=== PATIENT | female | born 1965 | race Caucasian/White ===

== ENCOUNTER → 2019-06-06 | Outpatient (CLI) | payer BC ==
--- NOTE | 2019-06-06 09:09 | MR ---
EXAMINATION TYPE: MR cspine/tspine/lspine wo con DATE OF EXAM: 06/06/2019 COMPARISON: MRI cervical and lumbar spine August 31, 2015. HISTORY: low back pain/neck pain/thoracic pain per order. Headache with neck and back pain for 4 year s causing pain or weakness in both hands and right buttock/thigh per patient. TECHNIQUE: Multiplanar, multisequence imaging of the cervical, thoracic, and lumbar spine are all per formed without IV contrast. FINDINGS: C-SPINE: FINDINGS: Sagittal images of the cervical spine show the craniocervical junction to remain within nor mal limits. The cervical and upper thoracic spinal cord is normal in caliber and signal. Vertebral alignment is stable and straightened. There is persisting grade 1 retrolisthesis C6 on C7 The verteb ral body heights remain normal. . There is moderate multilevel disc space narrowing and spurring wit h heterogeneous Modic type II endplate changes C6-C7 level for reference. Axial images at C2-C3 level redemonstrate tiny central disc protrusion mildly effacing anterior theca l sac, bilateral neural foramina are patent. Axial images at C3-C4 level redemonstrated bilobed disc herniation with uncovertebral facet arthropat hy effacing anterolateral thecal sac greater on the right and causing severe right and mild to modera te left-sided neural foraminal narrowing. No significant change from prior. Axial images at C4-C5 level show posterior lobulated disc protrusion effacing the anterolateral theca l sac and causing mild bilateral neural foraminal narrowing. No significant change from prior. Axial images at C5-C6 level shows broad-based left paracentral/foraminal disc protrusion effacing ant erolateral thecal sac and causing moderate left-sided neural foraminal narrowing. No significant vizcarra ge from prior. Axial images at C6-C7 level shows spondylosis with broad based left paracentral disc protrusion facin g anterolaterally thecal sac and causing moderate left-sided neural foraminal narrowing. Some progres shabnam from prior study thought present. Axial images at C7-T1 level shows broad-based spur disc complex effacing ventral thecal sac and causi ng mild to moderate left greater than right bilateral neural foraminal narrowing, findings progressed from prior. IMPRESSION: Straightening of cervical spine with multilevel degenerative changes as detailed above, i nterval progression in findings lower cervical levels from 2016 study noted. T-SPINE: FINDINGS: Spinal cord shows normal course, caliber, and signal as it courses the thoracic spine. Ve rtebral body heights and alignment are satisfactory. Disc space heights are fairly well maintained. T iny posterior disc herniations efface the anterior thecal sac T5-T6 through the T7-T8 levels on sagit letty images. Bone marrow signal intensity is maintained. No significant spurring is seen. Review of the axial images shows additional tiny right paracentral T1-T2 level effacing anterolateral thecal sac axial image 18. There is left paracentral disc protrusion effacing anterolateral thecal sac at T2-T3 level axial imag e 15. Tiny central disc protrusions are confirmed to mid thoracic levels as seen on sagittal images. Small hiatal hernia is suspected. No suspicious incidental finding in the visualized upper abdomen or thora x is otherwise identified. IMPRESSION: Mild multilevel disc herniations in the upper to mid thoracic spine. L-SPINE: There is new marked dextroconvex scoliosis centered at L2 level. Sagittal images show worsen ing multilevel spondylolisthesis with more prominent grade 1 retrolisthesis L1 on L2 and L2 on L3 not ed. There is stable grade 1 anterolisthesis L4 on L5. There is multilevel disc desiccation and mild t o moderate disc space narrowing. There is new Modic type II endplate changes at L1-L2 level with mild anterior spurring.. The conus medullaris remains normal in position and signal ending superior L1 l evel. Axial images show T12-L1 level to remain within normal limits. Axial images at L1-L2 level show no spondylolisthesis with moderate broad disc bulge effacing the ant erior thecal sac. There is voll-ag-yexowvbe facet arthropathy and ligamentum flavum hypertrophy effac ing the posterior lateral thecal sac greater on the left which is new from prior study. Bilateral rene ral foramina are maintained. Axial images at L2-L3 level show new spondylolisthesis and broad disc bulge effaces the anterior thec al sac with mild to moderate left greater than right facet degenerative changes which has progressed from prior study. There is mild left-sided neural foraminal narrowing noted. Axial images at L3-L4 level shows mild broad-based disc bulge and [id number]-[id number] facet degenerative changes bilaterally. Spinal canal preserved. Bilateral neural foramina are patent. No significant ch kahlil from prior. Axial images at L4-L5 level show spondylolisthesis with moderate to advanced facet arthropathy. There is effacement of the anterior thecal sac and posterior lateral thecal sac most prominent at this lev el axial image 7 and similar to prior study. Bilateral neural foramina remain patent. Axial images at L5-S1 level redemonstrate moderate facet degenerative changes bilaterally. There is b road disc bulge minimally effaces the anterior thecal sac. Bilateral neural foramina are patent. No s ignificant change from prior. Paraspinal muscle bulk fairly well preserved. Simple appearing thin-walled 1.6 cm cyst right kidney i mage 25 is redemonstrated. IMPRESSION: New dextroconvex scoliosis and significant spondylolisthesis upper lumbar spine with prog ressive degenerative changes upper to mid lumbar spine noted as detailed above. Stable most prominent spinal canal effacement or stenosis L4-L5 level noted.
== END | disposition home or self-care (01) ==
LOC: RADMRIMAIN 06:57
PROVIDERS: ATTEND Family Medicine
DX: M99.71 Connective tissue and disc stenosis of intervertebral foramina of cervical region (principal); M48.02 Spinal stenosis, cervical region; M50.21 Other cervical disc displacement, high cervical region; M43.12 Spondylolisthesis, cervical region; M47.812 Spondylosis without myelopathy or radiculopathy, cervical region; M46.92 Unspecified inflammatory spondylopathy, cervical region; M48.03 Spinal stenosis, cervicothoracic region; M51.24 Other intervertebral disc displacement, thoracic region; M99.73 Connective tissue and disc stenosis of intervertebral foramina of lumbar region; M48.061 Spinal stenosis, lumbar region without neurogenic claudication; M51.27 Other intervertebral disc displacement, lumbosacral region; M51.26 Other intervertebral disc displacement, lumbar region; M43.16 Spondylolisthesis, lumbar region; M47.817 Spondylosis without myelopathy or radiculopathy, lumbosacral region; M47.816 Spondylosis without myelopathy or radiculopathy, lumbar region; M46.96 Unspecified inflammatory spondylopathy, lumbar region; M41.86 Other forms of scoliosis, lumbar region
CPT/HCPCS: 72141; 72146; 72148

== ENCOUNTER 2021-05-22 21:05 | Emergency (ER) | payer BC ==
[2021-05-22 22:02] VITALS: PULSE 87; TEMP 98.3
[2021-05-22 22:27] VITALS: BP 126/79; RESP 20
[2021-05-22] MEDS ORDERED: ONDANSETRON ODT 4 MG TAB PO STA (22:40)
--- NOTE | 2021-05-22 22:43 | ED ---
General Adult HPI - General Chief complaint: Upper Respiratory Infection Stated complaint: Wants covid test Time Seen by Provider: 05/22/21 22:35 Source: patient, RN notes reviewed Mode of arrival: ambulatory Limitations: no limitations - History of Present Illness Initial comments: This is a well-appearing 55-year-old female that presents to the emergency room with complaints of nausea and body aches today after being exposed to family member that is covid positive. Patient took an at home test that was positive today. She has not been vaccinated. She does have a history of asthma. She has not been febrile. She is complaining of nausea at this time. She is requesting the monoclonal antibodies specifically regeneron. -: days(s) (1) Associated Symptoms: loss of appetite, nausea/vomiting Treatments Prior to Arrival: none - Related Data Allergies Allergy/AdvReac Type Severity Reaction Status Date / Time No Known Allergies Allergy Verified 05/22/21 22:02 Review of Systems ROS Statement: Those systems with pertinent positive or pertinent negative responses have been documented in the HPI. ROS Other: All systems not noted in ROS Statement are negative. Past Medical History Past Medical History: Asthma Additional Past Medical History / Comment(s): raynaud's syndrome History of Any Multi-Drug Resistant Organisms: None Reported Past Surgical History: No Surgical Hx Reported Past Psychological History: No Psychological Hx Reported Smoking Status: Never smoker Past Alcohol Use History: None Reported Past Drug Use History: None Reported General Exam Limitations: no limitations General appearance: alert, in no apparent distress Head exam: Present: atraumatic, normocephalic, normal inspection Eye exam: Present: normal appearance, EOMI ENT exam: Present: normal exam, normal oropharynx, mucous membranes moist Neck exam: Present: normal inspection, full ROM. Absent: tenderness, meningismus, lymphadenopathy, thyromegaly Respiratory exam: Present: normal lung sounds bilaterally. Absent: respiratory distress, wheezes, rales, rhonchi, stridor, accessory muscle use, decreased breath sounds Cardiovascular Exam: Present: regular rate, normal rhythm, normal heart sounds. Absent: systolic murmur, diastolic murmur, rubs, gallop, clicks Back exam: Present: normal inspection, full ROM. Absent: tenderness, CVA tenderness (R), CVA tenderness (L), rash noted Neurological exam: Present: alert, oriented X3 Psychiatric exam: Present: normal affect, normal mood Skin exam: Present: warm, dry, intact, normal color. Absent: rash Course Vital Signs 05/22/21 05/22/21 22:00 22:26 Temperature 98.3 F Pulse Rate 87 87 Respiratory 18 20 Rate Blood Pressure 137/83 126/79 O2 Sat by Pulse 98 94 L Oximetry Medical Decision Making - Medical Decision Making 55-year-old well-appearing female presents to the emergency room with complaints of body aches and nausea. She did an at home Covid test and is positive. She does have a history of asthma that for qualifies for the monoclonal antibodies infusion. She is requesting the antibodies. Her oxygen saturation is 94% on room air. Her vital signs are stable. She is in no respiratory distress. She tolerated the monoclonal antibody infusion well. She was discharged home and directed to quarantine for 10 days after symptom onset, return to the emergency room with a new or worsening symptoms. Disposition Clinical Impression: COVID-19 Disposition: HOME SELF-CARE Condition: Good Instructions (If sedation given, give patient instructions): Coronavirus Disease 2019 (COVID-19) Additional Instructions: Tylenol and or Motrin as needed for body aches or fevers. Take vitamin C, vitamin D and zinc for immune health. Self quarantine for 10 days after onset of symptoms and 24 hours without a fever. Follow-up with the primary care doctor as needed. Return to the emergency room with any new or worsening symptoms. Is patient prescribed a controlled substance at d/c from ED?: No Referrals: Suzanne Domínguez MD [Primary Care Provider] - 1-2 days Time of Disposition: 00:58
[2021-05-22] MEDS ORDERED: CASIRIVIMAB (REGN10933) (EUA) 600 MG, IMDEVIMAB (REGN10987) (EUA) 600 MG in SODIUM CHLO... IVPB ONE (23:00)
[2021-05-22] MEDS ORDERED: SODIUM CHLORIDE 0.9% 50 ML IVPB ONE (23:00)
== END 2021-05-23 00:38 | disposition home or self-care (01) ==
LOC: EC 21:05
DX: U07.1 COVID-19 (principal); J45.909 Unspecified asthma, uncomplicated
CPT/HCPCS: 96365; 99283; Q0243